=== PATIENT | female | born 1970 | race Caucasian/White ===

== ENCOUNTER 2017-09-08 18:04 | Emergency (ER) | payer OTHER ==
[~2017-09-08] VITALS: Ht 177.8 cm; Wt 75.8 kg
[2017-09-08] MEDS ORDERED: ALLEGRA ALLERGY60 MG PO (18:25)
[2017-09-08 18:46] LABS: ABSOLUTE BASOPHILS 0.1 thou/uL (0.0-0.2); ABSOLUTE EOSINOPHILS 0.3 thou/uL (0.0-0.7); ABSOLUTE LYMPHOCYTES 2.5 thou/uL (0.8-5.3); ABSOLUTE MONOCYTES 0.6 thou/uL (0.0-1.2); BASOPHILS 0.5 %; EOSINOPHILS 2.8 %; HEMATOCRIT 35.1 % (37.0-47.0); HEMOGLOBIN 11.8 gm/dL (12.0-15.0); LYMPHOCYTES 23.6 %; MCHC 33.7 g/dL (28.0-37.0); MCV 97.9 fL (80.0-100.0); MONOCYTES 5.8 %; MPV 7.9 fl. (7.2-11.1); NUCLEATED RBCS 0 /100WBC; PLATELET COUNT* 303 thou/uL (150-400); POLYS 67.3 %; RBC 3.59 mil/uL (4.20-5.00); RDW-CV 13.1 % (10.5-14.5); WBC 10.4 thou/uL (4.0-11.0)
[2017-09-08 18:53] LABS: URINE BILIRUBIN NEGATIVE (Negative); URINE BLOOD 3+ (Negative); URINE CLARITY CLOUDY; URINE COLOR YELLOW; URINE GLUCOSE-RANDOM NEGATIVE (Negative); URINE KETONES TRACE (Negative); URINE LEUKOCYTES-REFLEX TRACE (Negative); URINE PROTEIN 2+ (Negative); URINE SPECIFIC GRAVITY 1.025 (1.005-1.030)
[2017-09-08 18:53] LABS: APTT 27.9 Seconds (25.0-31.3); CALCIUM 8.6 mg/dL (8.5-10.1); CREATININE 0.9 mg/dL (0.6-1.3); POTASSIUM 3.8 mmol/L (3.5-5.1); PROTIME 9.5 Seconds (9.20-11.50)
[2017-09-08 18:54] LABS: URINE NITRITE-REFLEX POSITIVE (Negative)
[2017-09-08 18:59] LABS: SQUAMOUS NONE SEEN /LPF (0-3)
[2017-09-08 19:00] LABS: BACTERIA-REFLEX None Seen /HPF (None Seen); CASTS None Seen /LPF (None Seen); CRYSTALS None Seen /LPF (None Seen); MUCUS None Seen strn/LPF (None Seen); URINE RBC >20 Many /HPF (0-2); URINE WBC-REFLEX 0-5 Rare /HPF (0-5)
[2017-09-08 19:03] LABS: TOTAL BILIRUBIN 0.1 mg/dL (<0.1-1.0); TOTAL PROTEIN 7.4 g/dL (6.4-8.2)
[2017-09-08] MEDS ORDERED: BACTRIM DS TAB1 EACH PO (19:15)
[2017-09-08 19:33] VITALS: BP 121/77
== END 2017-09-08 19:34 | disposition home or self-care (01) ==
LOC: M.ERS 18:04
PROVIDERS: Physician Assistant
DX: N93.8 Other specified abnormal uterine and vaginal bleeding (principal); N39.0 Urinary tract infection, site not specified; N76.0 Acute vaginitis; B96.89 Other specified bacterial agents as the cause of diseases classified elsewhere; Z85.3 Personal history of malignant neoplasm of breast

== ENCOUNTER 2017-09-14 13:46 | Emergency (ER) | payer OTHER ==
[~2017-09-14] VITALS: Ht 177.8 cm; Wt 77.1 kg
[~2017-09-14 13:46] MED LIST: ALLEGRA ALLERGY60 MG PO; BACTRIM DS TAB1 EACH PO
[2017-09-14 13:50] VITALS: BP 124/87
== END 2017-09-14 14:45 | disposition home or self-care (01) ==
LOC: M.ERS 13:46
DX: Z53.21 Procedure and treatment not carried out due to patient leaving prior to being seen by health care provider (principal)

== ENCOUNTER 2020-05-22 09:18 | Emergency (ER) | payer OTHER ==
[~2020-05-22] VITALS: Ht 177.8 cm; Wt 77.1 kg
[2020-05-22 09:55] LABS: HEMATOCRIT 39.4 % (37.0-47.0); MCH 32.6 pg (26.0-34.0); MCHC 33.2 g/dL (28.0-37.0); MCV 98.4 fL (80.0-100.0); MPV 7.6 fl. (7.2-11.1); NUCLEATED RBCS 0 /100WBC; PLATELET COUNT* 271 thou/uL (150-400); RDW-CV 12.4 % (10.5-14.5); WBC 5.3 thou/uL (4.0-11.0)
[2020-05-22 10:00] LABS: ABSOLUTE EOSINOPHILS 0.2 thou/uL (0.0-0.7); ABSOLUTE MONOCYTES 0.4 thou/uL (0.0-1.2); ABSOLUTE NEUTROPHILS 2.8 thou/uL (1.6-8.1); BASOPHILS 0.5 %; LYMPHOCYTES 37.8 %; MONOCYTES 6.7 %
[2020-05-22 10:05] LABS: CREATININE 0.9 mg/dL (0.6-1.3); POTASSIUM 4.2 mmol/L (3.5-5.1)
[2020-05-22 10:10] LABS: ALBUMIN 3.3 g/dL (3.4-5.0); TOTAL BILIRUBIN 0.3 mg/dL (<0.1-1.0); TOTAL PROTEIN 7.6 g/dL (6.4-8.2)
[2020-05-22] MEDS ORDERED: CARAFATE 1 GM TA1 GM PO (10:42)
[2020-05-22] MEDS ORDERED: OMEPRAZOLE40 MG PO (10:42)
[2020-05-22 11:01] VITALS: BP 117/72
--- NOTE | 2020-05-23 11:24 | EKG ---
[place] [address] ELECTROCARDIOGRAM REPORT Name: MIKAYLA CROSS Room: [facility]#: [id number] Admission: 05/22/20 Attend Phys: Discharge: 05/22/20 Date of : 68 Date of Service: 05/22/20925 Report #: [id number] THIS REPORT FOR: //name// [facility] ED Test Date: 2020-05-22 Test Time: 09:26:20 Pat Name: MIKAYLA CROSS Department: Room: Gender: Research Intern: [facility] [facility] : 1970 Requested By: Herlinda Gutierrez Order Number: [id number] MD: Chandu Moctezuma Measurements Intervals [place] Rate: 86 P: 68 RI: 143 QRS: 57 QRSD: 91 T: 48 QT: 376 QTc: 450 Interpretive Statements Sinus rhythm Abnormal R-wave progression, early transition No previous ECG available for comparison Electronically Signed On 05-23-2020 11:24:05 [employer] by Chandu Moctezuma [email or web address] <ELECTRONICALLY SIGNED> By: Chandu Moctezuma MD, [facility] 05/23/20 1124 5 5 Chandu Moctezuma MD, FACC /EPI
== END 2020-05-22 11:02 | disposition home or self-care (01) ==
LOC: M.ERS 09:18
PROVIDERS: Personal Emergency Response Attendant
DX: K21.9 Gastro-esophageal reflux disease without esophagitis (principal)